=== PATIENT | female | born 1970 | race Caucasian/White ===

== ENCOUNTER 2016-04-16 07:34 | Emergency (ER) | payer BC, OTHER ==
[2016-04-16 07:52] VITALS: BP 108/70
--- NOTE | 2016-04-16 08:13 | UC ---
Back Pain HPI - HPI Summary HPI Summary: The patient comes in today for: 1. Back pain: Onset: Upper right posterior shoulder and neck. Palliative/provocative: Moving the head (rotation to the right, as well as flexion and extension). Quality: Ache, but sharp with movement. Region: Upper posterior shoulder Severity:7/10 Time: Constant. Associated symptoms: Numbness: None. Weakness: None Home treatments: Tylenol, ibuprofen, heat--helping slightly. Event: She lifted a patient on the . During the day it got worse. But, on Thursday morning it was really bad. She called out of work. * - History of Current Complaint Chief Complaint: UC Stated Complaint: BACK INJURY W/C Time Seen by Provider: 04/16/16 08:05 Hx Obtained From: Patient Hx Last Menstrual Period: HAS AN IUD, DOES NOT HAVE REG PERIODS ?: No - Allergies/Home Medications Allergies/Adverse Reactions: Allergies Allergy/AdvReac Type Severity Reaction Status Date / Time No Known Allergies Allergy Verified 04/16/16 07:43 Home Medications: Home Medications Levonorgestrel (IUD) (NF) [Mirena (NF)] 20 mcg IU 04/16/16 [History] PMH/Surg Hx/FS Hx/Imm Hx Previously Healthy: Yes Endocrine History Of: Denies: Diabetes, Thyroid Disease, Hyperthyroidism, Hypothyroidism, Dyslipidemia Cardiovascular History Of: Denies: Cardiac Disorders, Hypertension, Pacemaker/ICD, Myocardial Infarction , Congestive Heart Failure, Atrial Fibrillation, Deep Vein Thrombosis, Bleeding Disorders Respiratory History Of: Denies: COPD, Asthma, Bronchitis, Pneumonia, Pulmonary Embolism GI/ History Of: Denies: Gastroesophageal Reflux, Ulcer, Gastrointestinal Bleed, Gall Bladder Disease, Kidney Stones, Diverticulitis, Renal Disease, Urosepsis Neurological History Of: Denies: TIA, CVA, Dementia, Seizures, Migraine Psychological History Of: Denies: Anxiety, Depression, Bipolar Disorder, Schizophrenia, Post Traumatic Stress Disorder Cancer History Of: Denies: Lung Cancer, Colorectal Cancer, Breast Cancer, Prostate Cancer, Cervical Cancer Other History Of: Negative For: HIV, Hepatitis B, Hepatitis C, Anticoagulant Therapy - Surgical History Surgical History: Yes Surgery Procedure, Year, and Place: gastric bypass, with complications/surgery. - Family History Known Family History: Negative: Hypertension, Diabetes - Social History Occupation: Employed Full-time Alcohol Use: Rare Substance Use Type: None Smoking Status (MU): Former Smoker Type: Cigarettes When Did the Patient Quit Smoking/Using Tobacco: 9 YRS AGO Review of Systems Constitutional: Negative Skin: Negative Eyes: Negative ENT: Negative Respiratory: Negative Cardiovascular: Negative Gastrointestinal: Negative Genitourinary: Negative Musculoskeletal: Arthralgia, Myalgia All Other Systems Reviewed And Are Negative: Yes Physical Exam Triage Information Reviewed: Yes Appearance: Well-Appearing, No Pain Distress, Well-Nourished Vital Signs: Initial Vital Signs Temp 98.6 F 04/16/16 07:44 Pulse 62 04/16/16 07:44 Resp 16 04/16/16 07:44 BP 108/70 04/16/16 07:44 Pulse Ox 100 04/16/16 07:44 Vital Signs Reviewed: Yes Eyes: Positive: Conjunctiva Clear. Negative: Discharge ENT: Positive: Hearing grossly normal. Negative: Pharyngeal erythema, Nasal congestion, Nasal drainage, TM bulging, TM dull, TM red, Tonsillar swelling, Tonsillar exudate Dental: Negative: Gross Decay/Caries @, Dental Fracture @ Neck: Positive: Supple, Nontender, No Lymphadenopathy, Other: - There was restriction of motion of the neck with flexion, and extension, and right rotation/flexion.. Negative: Nuchal Rigidity Respiratory: Positive: Lungs clear, No respiratory distress, No accessory muscle use. Negative: Crackles, Wheezing Cardiovascular: Positive: RRR, No Murmur Abdomen Description: Positive: Nontender, No Organomegaly, Soft. Negative: Distended, Guarding Musculoskeletal: Positive: Other: - She has tenderness along the medial border of the right scapula and along the superior border. She has some tenderness along the scalene musculature of the right neck. Neurological: Positive: Alert, Muscle Tone Normal, Other: - There is no weakness or complaints of numbness. DTR of biceps, triceps, and brachioradialis were 2+/2 x 2. Psychological: Positive: Age Appropriate Behavior, Consolable Skin: Negative: rashes, breakdown Back Pain Course/Dx - Differential Dx/Diagnosis Provider Diagnoses: Right shoulder strain. Right neck strain Discharge - Discharge Plan Condition: Stable Disposition: HOME Patient Education Materials: Cervical Strain (ED), Shoulder Sprain (ED) Referrals: Xena Light NP [Primary Care Provider] - 1 Week (Please see your primary care provider (if his or her office accepts workmen's compensation) in about a week to see how well you are doing. If your primary care provider does not accept workmen's compensation, you can come to see us. If you get worse, please be seen sooner.)
== END 2016-04-16 09:03 | disposition home or self-care (01) ==
LOC: UCCORT 07:34
DX: S16.1XXA Strain of muscle, fascia and tendon at neck level, initial encounter (principal); S39.012A Strain of muscle, fascia and tendon of lower back, initial encounter; S33.5XXA Sprain of ligaments of lumbar spine, initial encounter; X50.0XXA Overexertion from strenuous movement or load, initial encounter; Y99.0 Civilian activity done for income or pay; Z87.891 Personal history of nicotine dependence; Z98.84 Bariatric surgery status; N92.6 Irregular menstruation, unspecified
CPT/HCPCS: 99212; G0463

== ENCOUNTER 2016-04-21 08:51 | Emergency (ER) | payer OTHER ==
[2016-04-21 09:17] VITALS: BP 106/65
--- NOTE | 2016-04-21 09:26 | UC ---
Back Pain HPI - HPI Summary HPI Summary: upper back pain sustained at work on 10 Apr 2016. 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 She was put on Prednisone and Baclofen and pulled out of work for a few days. Here now for follow-up. Does feel better, but still doesn't feel that she is ready to return to work and do the duties required. No prior back injuries. Had a lot of stomach upset from the prednisone. Pain on raising arm above head, lifting, driving. Would like to try a chiropractic treatment. - History of Current Complaint Chief Complaint: CRICKETackChey Stated Complaint: F/U BACK INJURY W/C Time Seen by Provider: 04/21/16 09:07 Hx Obtained From: Patient, Family/Branch Chief - Hx Last Menstrual Period: 2003 Onset/Duration: Gradual Onset, Lasting Days - 11 Timing: Constant Severity Initially: Severe Severity Currently: Moderate Back Pain: Is Discrete @ - right scapular area up to right base of neck Character: Dull, Aching, Stiffness Aggravating: Movement, Lifting, Bending, Walking, Cough Alleviating: Rest, Position, Heat Associated Signs And Symptoms: Negative: Swelling, Redness, Bruising, Fever, Weakness, Abdominal Pain, Flank Pain, Bladder Incontinence, Bowel Incontinence, Weight Loss, Pain with Weight Bearing - Risk Factors AAA Risk Factors: Negative TAD Risk Factors: Negative Cauda Equina Risk Factors: Negative Epidural Abscess Risk Factors: Negative - Allergies/Home Medications Allergies/Adverse Reactions: Allergies Allergy/AdvReac Type Severity Reaction Status Date / Time No Known Allergies Allergy Verified 04/21/16 09:04 PMH/Surg Hx/FS Hx/Imm Hx Previously Healthy: Yes Endocrine History Of: Denies: Diabetes, Thyroid Disease, Hyperthyroidism, Hypothyroidism, Dyslipidemia Cardiovascular History Of: Denies: Cardiac Disorders, Hypertension, Pacemaker/ICD, Myocardial Infarction , Congestive Heart Failure, Atrial Fibrillation, Deep Vein Thrombosis, Bleeding Disorders Respiratory History Of: Denies: COPD, Asthma, Bronchitis, Pneumonia, Pulmonary Embolism GI/ History Of: Denies: Gastroesophageal Reflux, Ulcer, Gastrointestinal Bleed, Gall Bladder Disease, Kidney Stones, Diverticulitis, Renal Disease, Urosepsis Neurological History Of: Denies: TIA, CVA, Dementia, Seizures, Migraine Psychological History Of: Denies: Anxiety, Depression, Bipolar Disorder, Schizophrenia, Post Traumatic Stress Disorder Cancer History Of: Denies: Lung Cancer, Colorectal Cancer, Breast Cancer, Prostate Cancer, Cervical Cancer Other History Of: Negative For: HIV, Hepatitis B, Hepatitis C, Anticoagulant Therapy - Surgical History Surgical History: Yes Surgery Procedure, Year, and Place: gastric bypass, with complications/surgery. - Family History Known Family History: Negative: Hypertension, Diabetes - Social History Occupation: Employed Full-time Lives: With Family Alcohol Use: Rare Substance Use Type: None Smoking Status (MU): Former Smoker Type: Cigarettes When Did the Patient Quit Smoking/Using Tobacco: 9 YRS AGO Review of Systems Constitutional: Negative Skin: Negative Eyes: Negative ENT: Negative Respiratory: Negative Cardiovascular: Negative Gastrointestinal: Negative Genitourinary: Negative Motor: Negative Neurovascular: Negative Musculoskeletal: Arthralgia, Decreased ROM, Myalgia Neurological: Negative Psychological: Negative All Other Systems Reviewed And Are Negative: Yes Physical Exam Triage Information Reviewed: Yes Appearance: Well-Appearing, No Pain Distress, Well-Nourished, Thin Vital Signs: Initial Vital Signs Temp 99.3 F 04/21/16 08:56 Pulse 78 04/21/16 08:56 Resp 18 04/21/16 08:56 BP 106/65 04/21/16 08:56 Eye Exam: Normal Neck: Positive: Supple, Tenderness @ - base right side extending down and over the scapular area Respiratory Exam: Normal Cardiovascular Exam: Normal Musculoskeletal Exam: Other - as above. Hurts to abduct and externally rotate left arm. Hurts to turn head to right. Palpable muscle tightness Neurological Exam: Normal Psychological Exam: Normal Skin Exam: Normal Back Pain Course/Dx - Course Course Of Treatment: refer to Chiropractor. She does not want to take any more pain/anti-inflammatory meds because of the stomach upset caused by PRednisone - Differential Dx/Diagnosis Differential Diagnosis/HQI/PQRI: Herniated Disc, Strain Provider Diagnoses: right upper back strain Discharge - Discharge Plan Condition: Stable Disposition: HOME Prescriptions: Sucralfate SUSP (NF) [Carafate SUSP (NF)] 1 gm PO Q6H PRN #120 ml PRN Reason: stomach upset Patient Education Materials: Thoracic Back Strain (ED), Upper Back Exercises ( GEN) Forms: *Work Release Referrals: Kati Alanis MD [Primary Care Provider] - Tommy GANDHI,Des Bernabe [Doctor of Chiropractic] -
== END 2016-04-21 09:28 | disposition home or self-care (01) ==
LOC: UCCORT 08:51
DX: S29.012A Strain of muscle and tendon of back wall of thorax, initial encounter (principal); X50.0XXA Overexertion from strenuous movement or load, initial encounter; Y93.F2 Activity, caregiving, lifting; Y92.9 Unspecified place or not applicable; Y99.0 Civilian activity done for income or pay; Z98.84 Bariatric surgery status; Z87.891 Personal history of nicotine dependence
CPT/HCPCS: 99212; G0463

== ENCOUNTER 2016-09-16 20:37 | Emergency (ER) | payer BC, OTHER ==
[2016-09-16] MEDS ORDERED: Fluorescein Sodium TOPICAL* 1 MG TEST OPHTHALMIC ONE (20:56)
[2016-09-16] MEDS ORDERED: Tetracaine 0.5% OPTH.SOL 4 ML* 1 DROP BTL BOTH EYES ONE (20:56)
[2016-09-16] MEDS ORDERED: Eye Irrigation Solution 30 ML BOTTLE BOTH EYES ONE (20:56)
[2016-09-16 21:06] VITALS: BP 115/78
[2016-09-16] MEDS ORDERED: Ciprofloxacin 0.3% OPTH.SOL* 2.5 ML BTL LEFT EYE ONE (21:12)
--- NOTE | 2016-09-16 21:19 | UC ---
Eye Complaint HPI - HPI Summary HPI Summary: L eye pain and FB sensation starting while working with wood and power tools 2 days ago. Was doing "ok" yesterday, but today suddenly symptoms felt worse, pt felt like there was FB under upper eyelid and she tried to get it out. Now cannot open her eye from pain and sensitivity. Denies prior eye surgery or chronic condition. - History of Current Complaint Chief Complaint: UCEye Stated Complaint: LFT EYE PAIN-POSS FOREIGN BODY Time Seen by Provider: 09/16/16 20:50 Hx Obtained From: Patient Hx Last Menstrual Period: DOES NOT HAVE REG PERIODS, HAS AN IUD ?: No Onset/Duration: Sudden Onset Timing: Constant Severity Initially: Mild Severity Currently: Severe Location of Injury: Conjunctiva, Eye Lid (upper) Character: Sharp, Foreign Body Sensation Aggravating Factor(s): Nothing Alleviating Factor(s): Darkness Associated Signs And Symptoms: Positive: Drainage (Clear). Negative: Vision Impairment Right, Vision Impairment Left - Allergies/Home Medications Allergies/Adverse Reactions: Allergies Allergy/AdvReac Type Severity Reaction Status Date / Time No Known Allergies Allergy Verified 09/16/16 20:46 Home Medications: Home Medications Acetaminophen TAB* [Tylenol TAB*] 650 mg PO Q4H PRN 09/16/16 [History Confirmed 09/16/16] Calcium Carbonate [Calcium] 500 mg PO DAILY 09/16/16 [History Confirmed 09/16/16 ] Levonorgestrel (Iud) [Mirena IUD] 20 mcg IU 09/16/16 [History] Multiple Vitamins W/ Minerals [Multivitamin Adults] 1 tab PO DAILY 09/16/16 [ History Confirmed 09/16/16] Senna TAB* [Senokot TAB*] 1 tab PO DAILY PRN 09/16/16 [History Confirmed ] PMH/Surg Hx/FS Hx/Imm Hx Previously Healthy: Yes Other History Of: Negative For: HIV, Hepatitis B, Hepatitis C, Anticoagulant Therapy - Surgical History Surgical History: Yes Surgery Procedure, Year, and Place: gastric bypass, with complications/surgery. - Family History Known Family History: Negative: Hypertension, Diabetes - Social History Occupation: Employed Full-time - home care nurse Alcohol Use: Rare Substance Use Type: None Smoking Status (MU): Former Smoker Type: Cigarettes When Did the Patient Quit Smoking/Using Tobacco: 9 YRS AGO Review of Systems Constitutional: Negative Skin: Negative Eyes: Eye Redness - L eye ENT: Negative Respiratory: Negative Cardiovascular: Negative Gastrointestinal: Negative Genitourinary: Negative Motor: Negative Neurovascular: Negative Musculoskeletal: Negative Neurological: Negative Psychological: Negative All Other Systems Reviewed And Are Negative: Yes Physical Exam Triage Information Reviewed: Yes Appearance: Well-Appearing, Well-Nourished, Pain Distress - mod Vital Signs: Initial Vital Signs Temp 99.8 F 09/16/16 20:48 Pulse 58 09/16/16 20:48 Resp 16 09/16/16 20:48 BP 115/78 09/16/16 20:48 Pulse Ox 100 09/16/16 20:48 Eye Exam: Other - PERRL Eyes: Positive: Conjunctiva Inflamed - L eye, Other: - fluorescein uptake on lateral half of L cornea, brightest/most concentrated on area from 1 o'clock to 3 o'clock, many faint linear scratches going different directions on lower lateral part of cornea ENT: Positive: Hearing grossly normal, Pharynx normal, Nasal drainage. Negative : Tonsillar swelling, Tonsillar exudate Dental Exam: Normal Neck exam: Normal Neck: Positive: Supple, Nontender, No Lymphadenopathy Respiratory Exam: Normal Respiratory: Positive: Chest non-tender, Lungs clear, Normal breath sounds, No respiratory distress, No accessory muscle use Cardiovascular Exam: Normal Cardiovascular: Positive: RRR, No Murmur Musculoskeletal Exam: Normal Neurological Exam: Normal Neurological: Positive: Alert Psychological Exam: Normal Skin Exam: Normal Eye Complaint Course/Dx - Differential Dx/Diagnosis Differential Diagnosis/HQI/PQRI: Conjunctivitis, Corneal Abrasion, Foreign Body , Keratitis, Penetrating Injury Provider Diagnoses: L eye corneal abrasions Discharge - Discharge Plan Condition: Stable Disposition: HOME Patient Education Materials: Corneal Abrasion (ED) Referrals: Kati Alanis MD [Primary Care Provider] - Glynn Jones MD [Medical Doctor] - Ryanne Velez MD [Medical Doctor] - 1 Day Additional Instructions: If the [facility] cannot see you within the next 2 days, please call [facility] in [place]. I do not see signs of complications from your corneal abrasion at this time, but our exam is limited and your symptoms are worsening so you need urgent follow-up.
== END 2016-09-16 21:28 | disposition home or self-care (01) ==
LOC: UCCORT 20:37
DX: S05.02XA Injury of conjunctiva and corneal abrasion without foreign body, left eye, initial encounter (principal); X58.XXXA Exposure to other specified factors, initial encounter; Y93.9 Activity, unspecified; Y92.9 Unspecified place or not applicable; Z98.84 Bariatric surgery status; Z87.891 Personal history of nicotine dependence
CPT/HCPCS: 99212; A9270-GY; G0463